=== PATIENT | male | born 1960 | race Caucasian/White ===

== ENCOUNTER 2021-06-21 08:42 | Day surgery (SDC) | payer OTHER ==
[~2021-06-21] VITALS: Ht 170.2 cm; Wt 86.6 kg
[~2021-06-21 08:42] MED LIST: AMOX TR-K CLV1 EAC1 PO
--- NOTE | 2021-06-21 18:02 | NUR ---
06/21/21 180 Norma Grady 1704 PT ARRIVED IN PACU NON RESPONSIVE TO NOXIOUS STIMULI WITH OPA IN PLACE. 1705 DARINEL WITH CBI RUNNING. 1712 PT REACTIVE. OPA REMOVED. 1715 PT GROWLING AT STAFF, THEN ASKING FOR COFFEE. NO C/O'S PAIN. 1730 DOING ARM EXERCISES WHILE TALKING TO STAFF. NO C/O'S. 1745 TO ROOM 124. BED PLUGGED IN AND REPORT GIVEN TO RN. 1750 PT'S CLOTHING, CHRISTIN PACK AND GLASSES RETURNED TO PT.
--- NOTE | 2021-06-21 18:50 | NUR ---
PT TO FLOOR WITH LENORE LOPEZ. PT DROWSY AND A LITTLE LOOPY. VS STABLE. PT WANTS A CUP OF COFFEE, STATES HE DRINKS IT ALL DAY. TENA DRAINING YELLOW URINE. PT DENIES PAIN. CPOX ATTATCHED. CALL LIGHT IN REACH. TENA EMPTIED AND BAG MARKED. DR BURGOS IN ROOM AND STATED SHE WANTS HIM ON A LEG BAG TOMORROW HE WILL HAVE THE TENA AN EXTENDED AMT OF TIME. SCDS IN PLACE.
--- NOTE | 2021-06-21 19:39 | NUR ---
REPORT RECEIVED FROM DAY SHIFT RN. PT LYING IN BED ALERT AND ORIENTED. IVF INFUSING WNL. POST OP VS WNL. TENA INTACT WITH YELLOW URINE. CBI AT SLOW DRIP. NO BLOOD NOTED IN TUBING. COFFEE PROVIDED PER REQUEST. PT DENIES PAIN OR NAUSEA. NO FURTHER NEEDS. WHITE BOARD UPDATED. CALL LIGHT IN REACH.
--- NOTE | 2021-06-21 20:39 | NUR ---
POST OP VS WNL. PT DENIES PAIN OR NAUSEA. SCHEDULED MEDS ADMIN PER EMAR. URINE CLEAR AT THIS TIME. CBI AT SLOW DRIP. ASSESSMENT COMPLETE. COFFEE AND WATER PROVIDED. NO FURTHER NEEDS. CALL LIGHT IN REACH.
--- NOTE | 2021-06-21 21:30 | NUR ---
POST OP VS COMPLETE. WNL. PT DENIES PAIN OR NAUSEA. URINE IN TUBING CLEAR. NO BLOOD NOTED. CBI CLAMPED AT THIS TIME. COFFEE PROVIDED. NO FRUTHER NEEDS.
--- NOTE | 2021-06-21 23:12 | NUR ---
PT AWAKE IN BED. DENIES PAIN OR NAUSEA. URINE CLEAR. CBI REMAINS CLAMPED.
--- NOTE | 2021-06-22 01:02 | NUR ---
PT AWAKE IN BED. URINE REMAINS CLEAR, CBI CLAMPED. COFFEE PROVIDED PER REQUEST.
--- NOTE | 2021-06-22 02:26 | NUR ---
PT RESTING WITH EYES CLOSED. AWAKENS EASILY. VS AND I&O COMPLETE. PRN FOR GENERALIZED DISCOMFORT ADMIN PER EMAR. TENA PATENT WITH YELLOW URINE. NO CLOTS OR BLEEDING NOTED IN TUBING, CBI REMAINS CLAMPED. SMALL AMOUNT BLOODY DRAINAGE NOTED ON GOWN FROM TENA INSERTION. GOWN CHANGED. PT ABLE TO REPOSITION SELF IN BED. CPOX AND SCD'S IN PLACE. NO FURTHER NEEDS. CALL LIGHT IN REACH.
--- NOTE | 2021-06-22 04:32 | NUR ---
PT RESTING IN BED WITH EYES CLOSED. RESPIRATIONS EVEN. CALL LIGHT IN REACH.
--- NOTE | 2021-06-22 06:00 | NUR ---
VS AND I&O COMPLETE. URINE CLEAR. NO BLOOD OR CLOTS NOTED. CBI CLAMPED SINCE 06/21/21 AT 2130. PT ANXIOUS FOR DISCHARGE. DISCUSSED PLAN OF CARE. COFFEE PROVIDED. PT DENIES PAIN OR NAUSEA. NO FURTHER NEEDS. CALL LIGHT IN REACH.
--- NOTE | 2021-06-22 07:41 | NUR ---
REPORT FROM LENORE HELM.
[2021-06-22] MEDS ORDERED: ALIVE PREMIUM PO (08:16)
--- NOTE | 2021-06-22 08:27 | NUR ---
MED REC COMPLETE
[2021-06-22] MEDS ORDERED: OXYCODONE HCL5 MG PO (08:31)
[2021-06-22] MEDS ORDERED: COLACE100 MG PO (08:32)
[2021-06-22] MEDS ORDERED: OXYBUTYNIN CHLOR5 MG PO (08:32)
--- NOTE | 2021-06-22 08:40 | NUR ---
MORNING ASSESSMENT COMPLETE, 9AM MEDICATIONS ADMINISTERED. PT RESTING COMFORATBLY IN BED, DRINKING COFFEE, CALL LIGHT WITHIN REACH. NO FURTHER NEEDS AT THIS TIME.
--- NOTE | 2021-06-22 09:19 | NUR ---
PATIENT IS SALINE LOCKED, IV ROCEPHIN COMPLETED. PATIENT UP TO CHAIR, SLIGHTLY DIZZY AND REQUIRING SBA. PLAN TO CALL DR. BURGOS SOON REGARDING DISCHARGE.
--- NOTE | 2021-06-22 10:25 | NUR ---
PATIENT IV'S REMOVED WITH CATHETER INTACT. TENA BAG CHANGED TO LEG BAG. PATIENT EDUCATED TO KEEP TO LIGHT DUTY, WATCH THE COLOR OF HIS URINE.
--- NOTE | 2021-06-22 16:49 | OR ---
[facility] [address], [place] [address] Signed DATE OF OPERATION: 06/21/2021 SURGEON: Cristian Burgos MD PREOPERATIVE DIAGNOSES: 1. Sudden onset painless gross hematuria resulting in clot retention requiring placement of an indwelling Lackey catheter. 2. Very large 10-12 cm papillary bladder mass seen on recent CAT scan. POSTOPERATIVE DIAGNOSES: 1. Sudden onset painless gross hematuria resulting in clot retention requiring placement of an indwelling Lackey catheter. 2. Very large 10-12 cm papillary bladder mass seen on recent CAT scan. NAMES OF PROCEDURES: 1. Urethral dilation using Fairchild sounds from 18-Lithuanian to 28-Lithuanian. 2. Diagnostic cystourethroscopy. 3. Transurethral resection of bladder tumor-extra large. ANESTHESIA: General with endotracheal intubation. ESTIMATED BLOOD LOSS: 800 mL. COMPLICATIONS: None. SPECIMENS: Multiple bladder tumor fragments with associated blood clots, sent to Pathology for evaluation. DRAINS: A 24-Lithuanian three-way Lackey catheter, connected to low flow continuous bladder irrigation. INDICATIONS FOR PROCEDURE: Mr. Silva is a very pleasant 60-year-old gentleman with no previously diagnosed medical problems, who presented to the emergency department approximately 2-3 weeks ago with a multi-week history of sudden onset gross hematuria that was progressively worsening. By Electronically Signed By: CRISTIAN BURGOS MD 06/22/21 1649 PATIENT NAME: BELKYS SILVA OPERATIVE REPORT DATE OF : 56 REPORT #: [id number] PHYSICIAN: CRISTIAN BURGOS MD PCP: JOSE ENRIQUE WILSON MD REPORT IS CONFIDENTIAL AND NOT TO BE RELEASED WITHOUT AUTHORIZATION [facility] [address] [place], [place] [address] Signed the time he made it to the emergency department, he was in acute blood clot retention and was quite uncomfortable. Upon presentation to the emergency department, he underwent placement of a Lackey catheter, which resulted in immediate relief of his symptoms. He was found to be experiencing acute kidney injury with a creatinine in the 1.2 range and he was also noted to have bilateral hydroureteronephrosis as well as a very large 10-12 cm papillary bladder mass on his CT scan. He subsequently has seen me in clinic and I explained to him that he has a very large bladder mass that requires immediate resection with possible bilateral ureteral stent insertion. He presents today to undergo the aforementioned procedure. OPERATIVE FINDINGS: 1. On cystoscopy, there was a very large bladder mass taking up the majority of the bladder volume. The bladder mass appears to be involving mostly the right lateral and posterior wall of the bladder. The left ureteral orifice is spared and is free of tumor. The right ureteral orifice also appeared to be spared of tumor. Once the tumor was completely resected, I could appreciate that no tumor was actively growing over the right ureteral orifice. At the end of the procedure, I was able to appreciate more than adequate efflux from both of the ureters. Therefore, the decision was made to not place bilateral ureteral stents. 2. This tumor resection was quite tedious and required a total of 4 hours of resection time due to the shear size and volume of the tumor. There was a good deal of bleeding that occurred during the resection as well, with fortunately, there was a good deal of clotting with blood clots produced during the resection, keeping some of the blood loss at a minimum. 3. Intravesicle Mitomycin was not administered today due to the sheer extent of the patient's bladder resection, for fear of potential Mitomycin toxicity. 4. Digital rectal examination was performed at the end of the procedure, which revealed no evidence of any abnormal nodules within the prostate. 5. Bimanual examination was performed before resection of the tumor, and it did reveal a large fixed mass in the right aspect of the patient's suprapubic area. This is consistent with the patient's known large bladder tumor. DESCRIPTION OF PROCEDURE: After informed consent was obtained, the patient was taken back to the operating room. [facility] was [facility] to the operating room table, where general anesthesia was induced. His existing indwelling Lackey catheter was removed. His genitalia were prepped and draped in a standard sterile fashion. His urethral meatus was dilated from 18-Lithuanian to 28-Lithuanian using Hany sounds without difficulty. Using a 30-degree lens on a 22.5-Lithuanian introducer, rigid cystoscope was inserted through his urethra and into his bladder under direct visualization. Panendoscopic views of bladder then Electronically Signed By: CRISTIAN BURGOS MD 06/22/21 1649 PATIENT NAME: BELKYS SILVA OPERATIVE REPORT DATE OF : 56 REPORT #: [id number] PHYSICIAN: CRISTIAN BURGOS MD PCP: JOSE ENRIQUE WILSON MD REPORT IS CONFIDENTIAL AND NOT TO BE RELEASED WITHOUT AUTHORIZATION [address] [address] Signed obtained. Please see above findings. The cystoscope was then removed. A bimanual examination was then performed. Please see above findings. I injected 60 mL of lubrication into the patient's urethra and then passed a 26-Lithuanian sheath using a visual obturator. The visual obturator was removed and replaced by a resectoscope with a 24-Lithuanian loop. I then began a very long and tedious resection of this very large bladder mass with associated satellite lesions. Again, the total resection time was approximately 4 hours. In between resections, the patient's bladder was irrigated using a Todd syringe and a good deal of fragments of papillary bladder tumor and blood clot approximately were removed multiple times. In total, the patient's bladder was irrigated, a total of 15-20 times during the resection. At the end of the resection, there was a very large amount of tumor present in the specimen jar. All the while, adequate hemostasis was achieved and maintained via bipolar electrocautery. There were multiple areas where the detrusor muscle was resected to allow for proper pathological staging of the specimen. By the time, the tumor was fully resected, I was able to visualize the bilateral ureteral orifices, which were effluxing fluorescein dye quite nicely. I did notice that neither of the ureteral orifices were resected, so I chose to defer stent placement at this time. He will undergo an ultrasound on June 30, as well as repeat renal function labs to determine if he does need stents at the time of his restaging TURBT. Once adequate hemostasis was achieved and all of the bladder tumor fragments had been completely removed from the patient's bladder, the resectoscope was removed. A 24-Lithuanian two-way Lackey catheter was then inserted in the patient's bladder and connected to low flow continuous bladder irrigation. A digital rectal examination was then performed. Please see above findings. The procedure was then terminated. The patient tolerated the procedure well without any complication. He will now be transferred to the postanesthesia care unit in stable condition. DISPOSITION: I discussed the details of today's procedure with the patient and answered all of his questions. He was notified that he has a very large fixed mass in his bladder and then I was able to resect all of the visualized portions of the tumor today. He did not require bilateral ureteral stent insertion because his bilateral ureteral orifices were effluxing urine nicely at the end of the procedure. He is scheduled to have a renal and bladder ultrasound on June 30 and we will closely follow up with those results to be sure his hydronephrosis has resolved. If not, he will require bilateral ureteral stent insertion at the time of his restaging TURBT. He is going to be staying tonight for close supervision, given the extent of his resection today. His CBC and BMP will be checked tomorrow morning before his discharge. He will be discharged to home with a Lackey catheter to gravity drainage. He is to continue his oral Augmentin 875 p.o. b.i.d. for the next five days. He was also given oxycodone 5 mg one tablet p.o. q.4-6 hours p.r.n. pain, dispense #30, along with oxybutynin up to two tablets daily p.r.n. bladder spasms. He will return to clinic on July 08 for both a voiding trial and a postoperative visit. Electronically Signed By: CRISTIAN BURGOS MD 06/22/21 9819 PATIENT NAME: BELKYS SILVA OPERATIVE REPORT DATE OF : 56 REPORT #: [id number] PHYSICIAN: CRISTIAN BURGOS MD PCP: JOSE ENRIQUE WILSON MD REPORT IS CONFIDENTIAL AND NOT TO BE RELEASED WITHOUT AUTHORIZATION [address] [address] Signed Cristian Burgos MD AR/MODL /[id number] Copies: ~ Electronically Signed By: CRISTIAN BURGOS MD 06/22/21 1649 PATIENT NAME: BELKYS SILVA OPERATIVE REPORT DATE OF : 56 REPORT #: [id number] PHYSICIAN: CRISTIAN BURGOS MD PCP: JOSE ENRIQUE WILSON MD REPORT IS CONFIDENTIAL AND NOT TO BE RELEASED WITHOUT AUTHORIZATION
--- NOTE | 2021-06-24 16:44 | PATH ---
[facility] [address] [place], [place] [address] Signed SPECIMEN(S): A BLADDER TUMOR SPECIMEN SOURCE: A. BLADDER TUMOR CLINICAL HISTORY: Bladder tumor, gross hematuria, bilateral hydronephrosis. 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 - Histologic grade: High grade. - Tumor configuration: Papillary. - Muscularis propria present: Muscularis propria is present. - Tumor extent: Noninvasive. - Lymphovascular invasion: Not identified. COMMENT: A diagnostic alert is initiated by Dr. Major on June 24, 2021. As part of [employer] Program, this case was reviewed by another member of our pathology staff. BRP:NRT:cml:C1NR MICROSCOPIC EXAMINATION: Histologic sections of all submitted blocks are examined by light microscopy. These findings, together with the gross examination, support the pathologic diagnosis. GROSS DESCRIPTION: The specimen, labeled "NASH, A," and designated on the requisition "bladder tumor," is received in formalin and consists of one portion of pink-cohn soft tissue with red-brown clot (184 gram, 12.0 x 12.0 x 3.0 cm in aggregate). [employer] sections are submitted in cassettes (A1-A9). AC (under the direct supervision of a pathologist) Per request by Dr. Major,11 additional cassettes are submitted (A10-A20). 06/23/21 12:38 The Gross Description was prepared using a voice recognition system. The report was reviewed for accuracy; however, sound-alike word errors, addition and/or PATIENT NAME: BELKYS SILVA PATHOLOGY DATE OF : 56 REPORT #: [id number] PHYSICIAN: LAMONTE HERNANDEZ PCP: JOSE ENRIQUE WILSON MD REPORT IS CONFIDENTIAL AND NOT TO BE RELEASED WITHOUT AUTHORIZATION [facility] [address] [address] Signed deletions may occur. If there is any question about this report, please contact Client Services. PERFORMING LABORATORY: The technical component [place] [address] (CLIA# [id number]). Professional interpretation was performed by [employer] [facility], [address] [address] (CLIA# [id number]). Diagnostician: Octavio Major MD Pathologist Electronically Signed 06/24/2021 Copies: ~ PATIENT NAME: BELKYS SILVA PATHOLOGY DATE OF : 56 REPORT #: [id number] PHYSICIAN: LAMONTE HERNANDEZ PCP: JOSE ENRIQUE WILSON MD REPORT IS CONFIDENTIAL AND NOT TO BE RELEASED WITHOUT AUTHORIZATION
== END 2021-06-22 10:45 | disposition home or self-care (01) ==
LOC: DS 08:42 → MS 18:20 → DS 06-22 10:45
PROVIDERS: ATTEND Urology
PROC: 0TBB8ZX Excision of Bladder, Via Natural or Artificial Opening Endoscopic, Diagnostic (ICD-10-PCS; principal; 2021-06-21 10:45)
DX: C67.9 Malignant neoplasm of bladder, unspecified (principal); R31.0 Gross hematuria; N39.41 Urge incontinence; N17.9 Acute kidney failure, unspecified; N13.30 Unspecified hydronephrosis; I10 Essential (primary) hypertension; F17.200 Nicotine dependence, unspecified, uncomplicated
CPT/HCPCS: 36415; 80048; 85014; 85018; 85025; 85027; 86850; 86900; 86901; 86922; C1769; J0131; J0690; J0696; J1100; J1885; J2001; J2704; J3010; J7121; J9280